=== PATIENT | male | born 1995 | race Two or more races ===

== ENCOUNTER 2024-08-05 16:40 | Emergency (ER) | payer OTHER ==
[~2024-08-05] VITALS: Ht 177.8 cm; Wt 83.9 kg
[2024-08-05] MEDS ORDERED: hydrOXYzine PAMOATE 50 MG CAPSULE PO ONE ×2 (17:00→17:07)
[2024-08-05 17:29] LABS: BASO % 0.7 % (0.1-1.2); EOS # 0.04 (0.04-0.54); EOS % 0.7 % (0.7-7.0); HEMATOCRIT 42.1 % (40.1-51.0); HEMOGLOBIN 14.6 g/dL (13.7-17.5); LYMPH # 1.54 (1.18-3.74); LYMPH % 28.1 % (19.3-53.1); MEAN CORPUSCULAR HEMOGLOBIN 29.6 pg (25.6-32.2); MONO # 0.41 (0.24-0.82); MONO % 7.5 % (4.7-12.5); NEUT # 3.43 (1.56-6.13); NEUT % 62.6 % (34.0-71.1); PLATELET COUNT 425 K/uL (163-369); RED BLOOD COUNT 4.94 M/uL (4.63-6.08); RED CELL DISTRIBUTION WIDTH 12.1 % (11.6-14.4)
[2024-08-05 18:29] LABS: COVID-19 AG NEGATIVE (NEGATIVE)
[2024-08-05 18:39] LABS: INFLUENZA A AG NEGATIVE (NEGATIVE); INFLUENZA B AG NEGATIVE (NEGATIVE)
== END 2024-08-05 19:45 | disposition home or self-care (01) ==
LOC: ER 17:12
PROVIDERS: Preventive Medicine Public Health & General Preventive Medicine
DX: R45.89 Other symptoms and signs involving emotional state (principal); Z20.822 Contact with and (suspected) exposure to COVID-19; E11.9 Type 2 diabetes mellitus without complications